=== PATIENT | male | born 1960 | race Caucasian/White ===

== ENCOUNTER 2023-08-25 09:27 | Outpatient (OUT) | payer OTHER, SELFPAY ==
--- NOTE | 2023-08-25 | XR_ITS ---
The [address] [address] Patient Name: SAMEERA MCGREGOR MRN: [id number] date: 1960 Sex: M Assigned Patient Location: [facility] Current Patient Location: [facility] Accession/Order Number: [id number] Exam Date: 08/25/2023 09:45 Report Date: 08/25/2023 11:29 At the request of: PAOLA HAHN Procedure: XR foot QUAN min 3V PROCEDURE: XR foot QUAN min 3V DATE: 08/25/2023 8:45 AM CDT COMPARISONS: None CLINICAL INDICATION: BILATERAL FOOT PAIN FINDINGS: There is no evidence of fractures or other acute osseous abnormalities. The left foot shows some mild first metatarsal phalangeal and first interphalangeal degenerative change. There is slight deformity of the proximal aspect of the fifth proximal phalanx which may represent old fracture. There is a small spur off the posterior inferior os calcis. The right foot shows moderate hallux valgus deformity. There is mild first metatarsal phalangeal degenerative change there is moderate first interphalangeal degenerative change. There appears to be hammertoe deformities second through the fifth ray. There is evidence of some midfoot degenerative changes difficult to further characterize on these images. There is tibiotalar degenerative changes also identified on radiographs of the ankle done the same day. XR/XR foot QUAN min 3V IMPRESSION: 1. No fractures or acute osseous abnormalities of either foot 2. The left foot show some scattered degenerative changes and no other significant abnormalities. 3. The right foot shows hallux valgus deformity, hammertoe deformities and scattered mild to moderate degenerative changes. Electronically authenticated by: LACHELLE FIGUEROA Date: 08/25/2023 11:29
--- NOTE | 2023-08-25 | XR_ITS ---
The [address] [address] Patient Name: SAMEERA MCGREGOR MRN: [id number] date: 1960 Sex: M Assigned Patient Location: [facility] Current Patient Location: [facility] Accession/Order Number: [id number] Exam Date: 08/25/2023 09:45 Report Date: 08/25/2023 11:34 At the request of: PAOLA HAHN Procedure: XR ankle QUAN min 3V PROCEDURE: XR ankle QUAN min 3V DATE: 08/25/2023 8:45 AM CDT COMPARISONS: None CLINICAL INDICATION: BILATERAL ANKLE PAIN FINDINGS: There is no evidence of fractures or other acute osseous abnormalities. 3 views of the left ankle show some heterotopic ossification distal to the fibula probably representing old trauma or accessory ossicles. No acute or significant left ankle osseous abnormalities are noted. Ankle mortise is intact. 3 views of the right ankle show marked tibiotalar degenerative change. It appears the talus is moderately angulated laterally consistent with chronic tibiotalar subluxation. This results in significant deformity of the right ankle all of which appears to be chronic. XR/XR ankle QUAN min 3V IMPRESSION: 1. The left ankle shows no significant abnormalities, including no acute findings. 2. The left ankle shows prominent deformity. There is chronic angulation of the talus with respect to the distal tibia resulting in widening of the ankle mortise. The articular surface of the talus is significantly subluxed laterally with this angulation. There is subsequent marked tibiotalar degenerative change. This appears to represent prominent chronic deformity. Electronically authenticated by: LACHELLE FIGUEROA Date: 08/25/2023 11:34
== END 2023-08-25 09:28 | disposition home or self-care (01) ==
LOC: RAD 09:28
PROVIDERS: Visit Provider Podiatrist Foot & Ankle Surgery
DX: M25.571 Pain in right ankle and joints of right foot (principal); M25.572 Pain in left ankle and joints of left foot; M21.6X1 Other acquired deformities of right foot; M20.11 Hallux valgus (acquired), right foot
CPT/HCPCS: 73610; 73630

== ENCOUNTER 2023-09-08 07:39 | Outpatient (OUT) | payer OTHER, SELFPAY ==
--- NOTE | 2023-09-08 08:57 | CT_ITS ---
The [address] [address] Patient Name: SAMEERA MCGREGOR MRN: [id number] date: 1960 Sex: M Assigned Patient Location: [facility] Current Patient Location: [facility] Accession/Order Number: [id number] Exam Date: 09/08/2023 09:00 Report Date: 09/08/2023 10:59 At the request of: PAOLA HAHN Procedure: CT ankle RT wo con EXAMINATION: CT ankle RT wo con HISTORY: Avascular Necrosis talus COMPARISON: No relevant comparison available. TECHNIQUE: Multi-planar CT images were created without IV contrast. Dose reduction techniques were achieved by using automated exposure control and/or adjustment of mA and/or kV according to patient size and/or use of iterative reconstruction technique. FINDINGS: BONES: No acute fracture. There is marked inversion of the foot in relation to the tibial plafond and measuring 33 degrees best seen on coronal image 217. There is lateral displacement of the talus in relation to the tibia measuring 1.9 cm. Severe degenerative changes are noted with joint space narrowing cortical thinning or proliferative osteophyte formation and extensive subchondral lytic changes . Moderate degenerative changes of the knee with joint space narrowing and marginal osteophyte formation. Contour deformity of the distal fibular diaphysis, remote healed injury. No definite focal sclerosis to suggest avascular necrosis of the talus. SOFT TISSUES: Moderate diffuse muscle atrophy. Mild subcutaneous edema. The foot EFFUSION: None visible. OTHER: Negative. CT/CT ankle RT wo con IMPRESSION: Severe degenerative changes as detailed above Electronically authenticated by: RICO LOPEZ Date: 09/08/2023 10:59
--- NOTE | 2023-09-08 09:16 | CA_ITS ---
The [facility] Test Date: 2023-09-08 Pat Name: SAMEERA MCGREGOR Department: Room: - Gender: Male Organ Pipe Voicer: Elda Patiño : 1960 Requested By: PAOLA HAHN Order Number: [id number] Reading MD: CAROL GARCIA Interpretive Statements Biphasic doppler waveforms PVR waveforms with normal upstroke, amplitude and dicrotic notch. Right: - no significant pressure gradient between cuffs - nomral TREY Left: - no significant pressure gradient between cuffs - nomral TREY Impression: - normal arterial evaluation of the lower extremities without hemodynamic impairment of the B/L lower extremities at rest (right TREY 1.12, left TREY 1.22) Electronically Signed On 09-09-2023 7:02:10 EST by CAROL GARCIA
== END 2023-09-08 07:40 | disposition home or self-care (01) ==
LOC: CARD 07:42
PROVIDERS: Visit Provider Podiatrist Foot & Ankle Surgery
DX: R09.89 Other specified symptoms and signs involving the circulatory and respiratory systems (principal); M87.9 Osteonecrosis, unspecified; M19.071 Primary osteoarthritis, right ankle and foot
CPT/HCPCS: 73700; 93923

== ENCOUNTER 2023-11-25 07:19 | Outpatient (OUT) | payer OTHER, SELFPAY ==
--- NOTE | 2023-11-25 07:31 | ECG_ITS ---
The [facility] Test Date: 2023-11-25 Pat Name: SAMEERA MCGREGOR Department: Room: - Gender: Male Chief Pilot: : 1960 Requested By: PAOLA HAHN Order Number: [id number] Reading MD: CAROL GARCIA Measurements Intervals [place] Rate: 82 P: 8 ID: [id number] QRS: 42 QRSD: 95 T: 40 QT: 360 QTc: 423 Interpretive Statements SINUS RHYTHM No previous ECG available for comparison Electronically Signed On 11-26-2023 6:53:26 EST by CAROL GARCIA
--- NOTE | 2023-11-25 08:50 | PM.PRESUREVA ---
History of Present Illness History of Present Illness Chief complaint: post traumatic osteoarthritis right ankle and foot Narrative: Patient presents for preadmission testing. The patient states he had an ankle fracture thirty-five years ago and did not seek treatment because he did not have insurance. He states he dealt with it fairly well for approximately twenty years and then recently has had increased pain and difficulty with ambulation. He states he has constant right ankle and foot pain with some numbness and tingling, he does feel that his ankle wants to give out on him but states it is better when he wears his custom brace. At the present time he is not taking any medication to help with his discomfort. The patient states he quit smoking approximately three months ago. He is a daily alcohol drinker. Review of Systems ROS Narrative REVIEW OF SYSTEMS: Negative except as stated in HPI, ten or more systems reviewed. Constitutional: No fever , chills, weakness ENT: No sore throat or epistaxis Cardiovascular: No edema, chest pain, or palpitations; Admits to dyspnea on exertion Respiratory: No shortness of breath at rest; no cough, or wheezing Gastrointestinal: No abdominal pain, constipation, diarrhea, or vomiting Genitourinary: No dysuria or hematuria Neurological: No numbness, tingling, weakness, or headache Psychiatric: No mood changes [facility] Medical History (Updated 11/25/23 @ 08:54 by Enedelia Aguilar NP) Pain in right ankle and joints of right foot ?M25.571 - Pain in right ankle and joints of right foot (ICD-10) Varus deformity, not elsewhere classified, right ankle ?M21.171 - Varus deformity, not elsewhere classified, right ankle (ICD-10) Diabetic polyneuropathy ?E11.42 - Type 2 diabetes mellitus with diabetic polyneuropathy (ICD-10) Acquired deformity of right lower leg ?M21.961 - Unspecified acquired deformity of right lower leg (ICD-10) Contracture, right ankle ?M24.571 - Contracture, right ankle (ICD-10) Acquired deformity of right foot ?M21.961 - Unspecified acquired deformity of right lower leg (ICD-10) Post-traumatic osteoarthritis, right ankle and foot ?M19.171 - Post-traumatic osteoarthritis, right ankle and foot (ICD-10) Osteonecrosis due to previous trauma ?M87.20 - Osteonecrosis due to previous trauma, unspecified bone (ICD-10) Hypertension ?I10 - Essential (primary) hypertension (ICD-10) High cholesterol ?E78.00 - Pure hypercholesterolemia, unspecified (ICD-10) Diabetes ?E11.9 - Type 2 diabetes mellitus without complications (ICD-10) Family History (Updated 11/25/23 @ 08:20 by Enedelia Aguilar NP) Other Family history of breast cancer Family history of stroke Social History (Updated 11/25/23 @ 08:15 by Enedelia Aguilar NP) Within the past year, how often did you have a drink containing alcohol: 4 or more times a week Within the past year, how many standard drinks containing alcohol did you have on a typical day: 7 to 9 Smoking status: Former smoker Non-prescribed substance use: cannabis (any form) Previous occupational history: works from home Highest level of school completed/degree received: some college, no degree Meds Home Medications and Allergies Home Medications Medication Instructions Recorded Confirmed Type alendronate 70 mg tablet 70 mg PO QWEEK 11/25/23 11/25/23 History atorvastatin 80 mg tablet 80 mg PO DAILY 11/25/23 11/25/23 History cholecalciferol (vitamin D3) 125 125 mcg PO DAILY 11/25/23 11/25/23 History mcg (5,000 unit) capsule glipizide 5 mg tablet 5 mg PO DAILY 11/25/23 11/25/23 History lactobacillus combination no.4 3 3,000 mmu cells PO DAILY 11/25/23 11/25/23 History billion cell capsule (Probiotic) lisinopril 20 mg tablet 20 mg PO DAILY 11/25/23 11/25/23 History lisinopril 20 1 tab PO DAILY 11/25/23 11/25/23 History mg-hydrochlorothiazide 25 mg tablet Allergies Allergy/AdvReac Type Severity Reaction Status Date / Time No Known Drug Allergies Allergy Verified 11/25/23 08:11 Exam Narrative Exam Narrative: Constitutional: Awake, alert, comfortable, well-appearing, nontoxic, interactive, vital signs as charted Head: Normocephalic, atraumatic Neck: Supple, normal appearance, normal range of motion, no meningeal signs, no lymphadenopathy Respiratory: No respiratory distress, breath sounds clear Cardiovascular: Regular rate and rhythm, strong and regular heart tones Musculoskeletal: Knee-high leather laced brace intact to right lower extremity Skin: No rashes or induration, no lesions, only visible skin inspected Neuro: No neurological deficits, normal sensation Psychiatric: Oriented ?3, normal affect Assessment and Plan Assessment and Plan (1) Osteonecrosis due to previous trauma: (2) Post-traumatic osteoarthritis, right ankle and foot: (3) Acquired deformity of right foot: (4) Contracture, right ankle: (5) Acquired deformity of right lower leg: (6) Diabetic polyneuropathy: (7) Varus deformity, not elsewhere classified, right ankle: (8) Pain in right ankle and joints of right foot: Plan Right foot and ankle reconstruction with fusion of ankle and subtalar joints with talectomy and 3-D printed device, bone graft, soft tissue balancing as needed scheduled with Dr. Mishra 12/06/2023.
[2023-11-25 09:22] LABS: Bilirubin Urine NEGATIVE (NEGATIVE); Blood Urine TRACE-I (NEGATIVE); Clarity Urine CLEAR (CLEAR); Color Urine YELLOW (YELLOW); Glucose Urine UA 250 mg/dL (NEGATIVE); Ketones Urine NEGATIVE (NEGATIVE); Leukocyte Esterase Urine NEGATIVE (NEGATIVE); Nitrite Urine NEGATIVE (NEGATIVE); Protein Urine 30 mg/dL (NEG/TRACE); Specific Gravity Urine 1.025 (1.005-1.025)
[2023-11-25 11:28] LABS: Anion Gap 14.7; BUN Creatinine Ratio 16.7; Calcium 9.3 mg/dL (8.5-10.1); Carbon Dioxide 27.8 mmol/L (21.0-32.0); Chloride 93 mmol/L (98-107); Estimated GFR (African America >60 (>=60); Estimated GFR (Non-African Ame >60 (>=60); Glucose 222 mg/dL (74-106); Potassium 4.5 mmol/L (3.5-5.1); Sodium 131 mmol/L (136-145)
== END 2023-11-25 07:20 | disposition home or self-care (01) ==
LOC: PST 07:20
PROVIDERS: Visit Provider Podiatrist Foot & Ankle Surgery
DX: Z01.810 Encounter for preprocedural cardiovascular examination (principal); Z01.818 Encounter for other preprocedural examination; Z01.812 Encounter for preprocedural laboratory examination; M19.171 Post-traumatic osteoarthritis, right ankle and foot; M21.171 Varus deformity, not elsewhere classified, right ankle
CPT/HCPCS: 80048; 81003; 83036; 87081; 93005; G0463

== ENCOUNTER 2023-12-06 16:37 | Inpatient (IN) | payer OTHER, SELFPAY ==
[2023-11-25 08:37] VITALS: BP 157/82; PULSE 87; RESP 20; TEMP 36.2; O2SAT 95; BMI 39.6
[2023-12-06] VITALS (11 sets, daily range): BP systolic 108–163; BP diastolic 65–86; PULSE 81–94; RESP 13–20; TEMP 36.3–37.3; O2SAT 90–94; BMI 40.7; BMI 43.7
--- NOTE | 2023-12-06 | FL_ITS ---
[address] [address] Patient Name: SAMEERA MCGREGOR MRN: [id number] date: 1960 Sex: M Assigned Patient Location: [facility] Current Patient Location: MS Accession/Order Number: [id number] Exam Date: 12/06/2023 11:00 Report Date: 12/08/2023 08:24 At the request of: PAOLA HAHN Procedure: FL fluoroscopy <1hr NON-READ EXAM: FL fluoroscopy <1hr NON-READ HISTORY: TECHNIQUE: FINDINGS: Please see Operative Report. Electronically authenticated by: RADIOLOGIST NO Date: 12/08/2023 08:24
[2023-12-06 07:07] LABS: Basophils Absolute Auto 0.1 10^3/uL (0.0-0.1); Basophils Percent Auto 1.7 % (0.2-2.0); Eosinophils Absolute Auto 0.4 10^3/uL (0.0-0.7); Eosinophils Percent Auto 5.2 % (0.9-7.0); Hematocrit 40.6 % (42.0-54.0); Hemoglobin 14.5 g/dL (14.0-18.0); Immature Granulocytes Abs Auto 0.13 10^3/uL (0.00-0.03); Immature Granulocytes Pct Auto 1.7 % (0.0-0.5); Lymphocytes Absolute Auto 1.3 10^3/uL (1.2-3.8); Lymphocytes Percent Auto 16.7 % (20.5-60.0); Mean Corpuscular HGB Conc 35.7 g/dL (29.9-35.2); Mean Corpuscular Hemoglobin 33.1 pg (25.9-34.0); Mean Corpuscular Volume 92.7 fL (80.0-94.0); Mean Platelet Volume 9.2 fL (9.5-13.5); Monocytes Percent Auto 12.7 % (1.7-12.0); Neutrophils Absolute Auto 4.8 10^3/uL (1.4-6.5); Platelet Count 296 10^3/uL (150-450); Red Blood Count 4.38 10^6/uL (4.70-6.10); Red Cell Distribution Width 11.9 % (11.0-15.0); White Blood Count 7.7 10^3/uL (4.0-11.0)
[2023-12-06 07:29] LABS: Glucometer 204 mg/dL (74-106)
[2023-12-06] MEDS: ACETAMINOPHEN 500 MG TABLET 1000 MG PO (07:49)
[2023-12-06] MEDS: LACTATED RINGER'S SOLUTION 1,000 ML 50 ML IV ×2 (07:49→11:44)
[2023-12-06] MEDS: CELECOXIB 200 MG CAPSULE PO (07:49)
[2023-12-06] MEDS: PREGABALIN 75 MG CAPSULE PO ×2 (07:49→21:36)
--- NOTE | 2023-12-06 09:11 | PC.NURSE ---
Patient was consented for a nerve block. See time-out documentation. Patient was positioned in a supine fashion with O2 and monitors in place. Patient was medicated by Dr. Mosquera with Versed. Bedside ultrasound was used for both areas of block (femoral and popliteal). Patient was positioned on to side when popliteal block was done. Patient tolerated both well. Voiced no questions or concerns. Patient remains on monitors and O2 until he is taken to OR. at bedside at this time.
[2023-12-06] MEDS: CEFAZOLIN SODIUM 3,000 MG in 0.9 % SODIUM CHLORIDE 100 ML 200 MG IV (09:45)
--- NOTE | 2023-12-06 11:00 | PM.ORONB ---
Brief Operative Note Date of procedure: 12/06/23 Pre-op diagnosis: right ankle/foot arthritis with varus deformity, AVN of talus, FF valgus Post-op diagnosis: other (right ankle/foot arthritis with varus deformity, avascular necrosis of talus, forefoot valgus, contracture of posterior tibial tendon, equinus, plantar fascial contracture, type 2 diabetes with peripheral neuropathy and nicotine dependence in remission) Procedure: PROCEDURES PERFORMED: right ankle and subtalar joint fusion, talectomy, posterior tibial tendon lengthening, Achilles lengthening, plantar fasciectomy, harvest of tibial bone graft, application short leg splint and intraoperative fluoroscopy examination INDICATIONS FOR PROCEDURE: patient is a 63-year-old male with type 2 diabetes and peripheral neuropathy. He has a smoking history of forty pack years however according the patient he is quit smoking since 08/29/23 without the help of nicotine replacement or medication. Right sided TREY was 1.12 while TBI was 1.20. patient was referred to me from his local communications tech for severe cavovarus deformity with ankle and hindfoot arthritis. He had attempted multiple custom rigid bracing modalities with only marginal relief. Patient related that his foot began becoming more deformed and has been increasing in deformity for the last five years. He is interested in surgical reconstruction and I reviewed the potential risks and benefits. CT scan was highly concerning for avascular necrosis of the talus. Clinically and plain radiographs revealed severe varus deformity of the tibiotalar joint with end-stage arthrosis. In addition his subtalar joint was also arthritic. I educated the patient and his specifically regarding the complexity of the patient's right ankle and foot issue but also that he is at increased risk given his diabetes with neuropathy and extensive smoking history. All questions were answered to the patient's satisfaction INTRAOPERATIVE FINDINGS: severe contractures of the Achilles and posterior tibial tendon were noted and upon release partial reduction of the patient's deformity was obtained on the table. When excising his fibula was notably partially fused to the tibia at the level of the syndesmosis. Full-thickness cartilage loss of the entire talus and seventy-five percent of the distal tibia. There was significant surrounding synovitis of the ankle and subtalar joint with the subtalar joint having nearly half of the joint surface having lost all cartilage. The talus was extremely unstable and was able to be excised in total without the need for talar osteotomy. even the nonarticular portions of the talus had full-thickness cartilage loss. This bone was clearly compromised being a pale yellow color. Bone quality of all other bones however was within normal limits given patient's age and gender. Forefoot valgus is noted preoperatively however reduced significantly once soft tissue releases and hindfoot and ankle fusion were performed PROCEDURES IN DETAIL: Patient was identified in pre op and consent was reviewed. Correct side and site were identified and marked. Regional anesthesia performed by the anesthesia team. Pre-op antibiotics were started. Patient was brought to OR suite and place on table in a supine position. General anesthesia was administered. Tourniquet applied. Operative extremity was prepped and draped in usual sterile fashion. Formal time-out was performed and the foot/ankle were exsanguinated and tourniquet inflated. Utilizing a stab incision over the mid substance of the Achilles tendon, a scalpel was used to fully release the Achilles tendon. Significant increase in ankle joint dorsiflexion was noted on the table. then a 3 cm longitudinal incision was placed posterior to the medial malleolus and comminution sharp and blunt dissection gained access to the posterior tibial tendon. The surgical tendon sheath was reflected and the posterior tibial tendon was isolated then cut trannsversely allowing partial correction of the patient's varus deformity. Next a 3 cm longitudinal incision was placed at the glabrous skin junction on the medial heel and comminution sharp and blunt dissection gained access to the medial band of the plantar fascia. Once the fascia was isolated with hemostats a 1 cm portion of the medial band of plantar fascia was excised sharply releasing the contracture of the plantar fascia. The surgical sites were irrigated copiously. Lateral extensile incision was placed over the distal fibula and extended over the sinus tarsi. Comminution sharp and blunt dissection gained access to the fibular malleolus. An osteotomy of the fibula was performed and the distal fibula was excised and passed the back table. Access was gained to the ankle and subtalar joints and exposure of the entire talus was performed. the talus was extremely unstable and a combination of sharp and blunt dissection I was able to release all soft tissue attachments to the talus which was then removed in total without the need for osteotomy. The talus was passed the back table to be sent as specimen. The distal tibia and calcaneal facets were prepared for fusion with the use of acetabular reamers. Estimated reamers were used under fluoroscopy ensuring that the joint spaces were prepared to accommodate the three printed talar cage. All cartilage and subchondral bone was removed with acetabular reamer. The distal tibia and calcaneal facets were then drilled with a 2.0 mm drill bit in the surgical site was irrigated copiously. trials were used to determine the ideal fit as well as ability to reduce all deformity. He was determined that the small sized three printed talar cage would provide ideal reduction and bone to implant contact. The trial was left in place during the reaming process. Utilizing C-arm a proper starting point on the plantar surface of the calcaneus was marked. A longitudinal incision over the plantar heel was created blunt dissection down to the plantar calcaneus was performed. Then utilizing a A large guidepin was placed in the calcaneus through a stab incision on the posterior lateral aspect. This wire was placed under fluoroscopic guidance and was then used as a joystick to hold the hindfoot in a neutral position. then the guidepin was placed from the plantar calcaneus through the trial and into the distal tibia under fluoroscopic guidance. Starting with the 7 mm reamer, reaming was performed of the calcaneus and into the tibial plafond. Next a 9 mm reamer was used in the same fashion. The reamer and guide pin was removed. A ball-tipped wire was then placed into the hole in the calcaneus and tibia then a mallet was used to advance the ball-tip guidewire into the proximal tibia. Fluoroscopy confirmed the ball-tip wires placement. Then a 9.5 mm reamer was used over the ball-tipped wire into the level of the proximal tibia. 0.5 mm larger reamer in succession until chatter was obtained in the tibial isthmus. Largest reaming with an 13 mm reamer followed by a 13.5 mm reamer to accommodate the distal aspect of the nail was performed for a [id number] mm nail. All reamings collected as tibial autograft with use of the Fanv[employer]eler Bone Press and corresponding suction device. 10 mL of solid bone graft was from bone marrow aspirate (15 mL) utilizing the bone press. The ball tipped wire was then removed. The solid graft was mixed with 5 cc of Sparc, Proteios & ConCelltrate allografts and was packed into the titanium 3D printed talar cage. Once packed with graft the cage was place between the tibia and calcaneus. On the back table, the appropriate sized nail was attached to the jig and the nitinol element was stretched to 6 mm. X-ray was evaluated for proper positioning of the nail. Stab incisions over the posterior and lateral aspect of the calcaneus were placed followed by blunt dissection down to bone was performed. The lateral to medial calcaneus hole was drilled with the corresponding cannula and a 5.0 mm screws was placed. Next, the distal most screw was drilled from posterior to anterior under fluoroscopy guidance. A 5.0 mm screw was then placed from a posterior anterior direction through the nail holes distally. at this point in time the tourniquet had reached a hundred twenty minutes so the lateral incision was temporarily closed with carlo for hemostasis preventing any bone graft loss. A stab incision was placed over the mid shaft of the tibia followed by blunt dissection down to bone. Then the tibia drilled transversely with a compression justo accordingly with the appropriate drill sleeves across the dynamic proximal slot an additional stab incision was placed to allow passage of the compression justo. Then utilizing the jig the ankle and subtalar joints were compressed until there was a slight bend in the compression rods. 4 mm of manual compression was obtained which was visualized under fluoroscopy. Next the medial stab incision was extended proximally and distally followed by blunt dissection down to bone. A static crosslock screw was placed accordingly across the midshaft with the aide of the jig under fluoroscopic guidance. The manual compression was removed followed by the compression justo. An additional 5.0 mm screw was placed tranversly across the dynamic slot in the tibia. The jig was then removed after confirming proper hardware placement. An end cap on the distal aspect of the nail was then placed and confirmed under fluoroscopy. excluding the lateral extensile incision all other incisions were irrigated and closed in layers. Over twenty minutes of reperfusion time had been obtained and the foot and ankle were then exsanguinated and the tourniquet was reinflated. The carlo for temporary closure of the lateral incision were then removed and the surgical site was lightly irrigated then any remaining graft was packed into the fusion site. This incision was then closed in layers and the tourniquet was dropped with a prompt hyperemic response being noted. A dry sterile dressing consisting of Xeroform on the incisions followed by 4 x 4 gauze, ABDs, and Kerlix were applied. Multiple layers of cast padding were then applied to ensure all bony prominences were well-padded. A plaster posterior splint was then applied which was held in place by Antoine wraps. Capillary refill time to all digits was evaluated and had appropriate response. POSTOPERATIVE PLAN: Transfer to med/surg under hospitalist's care NWB operative foot/ankle Ice and elevation Birdie-op antibiotics, multimodal pain medication and DVT prophylaxis ordered Consults: physical therapy & social media job titles Estimated LOS 2-3 nights Will follow *NWB x8-12 weeks Implants: [employer] DynaNail [id number] 3D printed, patient specific talar cage Bone allograft: Sparc, Proteios & ConCelltrate Anesthesia: regional and General-LMA Surgeon: Omar Mishra Lawn Service Worker: Jhony Wilks Estimated blood loss (mL): 100 Pathology: other (talus and lateral malleolus) Condition: stable Disposition: floor
--- NOTE | 2023-12-06 13:47 | XR_ITS ---
The [address] [address] Patient Name: SAMEERA MCGREGOR MRN: [id number] date: 1960 Sex: M Assigned Patient Location: MS Current Patient Location: MS Accession/Order Number: [id number] Exam Date: 12/06/2023 15:00 Report Date: 12/06/2023 15:31 At the request of: EMMA BYERS Procedure: XR foot RT min 3V PROCEDURE: XR ankle RT min 3V, XR foot RT min 3V COMPARISON: 09/08/2023 HISTORY: Postop x-ray FINDINGS: BONES:Interval talus resection with placement of a talar cage. Ankle fusion with reduction and hindfoot varus utilizing a retrograde intramedullary justo and proximally and distally. Resection of the distal fibula. SOFT TISSUES:Postprocedural soft tissue swelling and subcutaneous emphysema EFFUSION:None visible. OTHER: Posterior splint obscures bone detail XR/XR foot RT min 3V IMPRESSION: Interval talus resection and ankle fusion Electronically authenticated by: RICO LOPEZ Date: 12/06/2023 15:31
--- NOTE | 2023-12-06 13:47 | XR_ITS ---
The [address] [address] Patient Name: SAMEERA MCGREGOR MRN: [id number] date: 1960 Sex: M Assigned Patient Location: MS Current Patient Location: MS Accession/Order Number: [id number] Exam Date: 12/06/2023 15:00 Report Date: 12/06/2023 15:31 At the request of: EMMA BYERS Procedure: XR ankle RT min 3V PROCEDURE: XR ankle RT min 3V, XR foot RT min 3V COMPARISON: 09/08/2023 HISTORY: Postop x-ray FINDINGS: BONES:Interval talus resection with placement of a talar cage. Ankle fusion with reduction and hindfoot varus utilizing a retrograde intramedullary justo and proximally and distally. Resection of the distal fibula. SOFT TISSUES:Postprocedural soft tissue swelling and subcutaneous emphysema EFFUSION:None visible. OTHER: Posterior splint obscures bone detail XR/XR ankle RT min 3V IMPRESSION: Interval talus resection and ankle fusion Electronically authenticated by: RICO LOPEZ Date: 12/06/2023 15:31
--- NOTE | 2023-12-06 13:47 | CT_ITS ---
The [address] [address] Patient Name: SAMEERA MCGREGOR MRN: [id number] date: 1960 Sex: M Assigned Patient Location: MS Current Patient Location: MS Accession/Order Number: [id number] Exam Date: 12/06/2023 15:00 Report Date: 12/06/2023 15:29 At the request of: EMMA BYERS Procedure: CT ankle RT wo con EXAMINATION: CT ankle RT wo con HISTORY: Post op CT R ankle, COMPARISON: 09/08/2023 TECHNIQUE: Multi-planar CT images were created without IV contrast. Dose reduction techniques were achieved by using automated exposure control and/or adjustment of mA and/or kV according to patient size and/or use of iterative reconstruction technique. FINDINGS: BONES: Interval talus resection with KK age and ankle fusion utilizing a retrograde intramedullary justo extending through the calcaneus into the tibia and proximally and distally. Anatomic alignment is noted with reduction in the previously noted varus deformity of the foot in relation to the tibia. No acute fracture, dislocation or mechanical failure. SOFT TISSUES: Postsurgical subcutaneous edema and air. EFFUSION: None visible. OTHER: Negative. CT/CT ankle RT wo con IMPRESSION: Interval talus resection and ankle fusion detailed above Electronically authenticated by: RICO LOPEZ Date: 12/06/2023 15:29
[2023-12-06 14:38] LABS: Glucometer 209 mg/dL (74-106)
--- NOTE | 2023-12-06 16:34 | P.HP_ITS ---
<Statement entered by Shaikh Maikel MD - 12/06/23 18:44> This documentation has been reviewed and approved.Case d/w Zakia. 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 Please see the podiatry service's clinic H&P for the clinical course leading to this operative repair. He is being admitted to the hospitalist service in observation overnight for close monitoring of his postoperative status and pain control. At the time of my exam the patient is resting comfortably in bed chatting with his at the bedside. He is alert and oriented x 3. He had an intraoperative nerve block performed during surgery and he has no sensation of the right lower extremity at this time. He denies any chest pain, shortness of breath, N/V, or any other acute complaint. His operative foot is warm and pink with palpable pulses. Review of Systems ROS Status of ROS 10 or more systems reviewed and unremark able except as noted in history and below [facility] Medical History (Updated 11/25/23 @ 08:54 by Enedelia Aguilar NP) Pain in right ankle and joints of right foot ?M25.571 - Pain in right ankle and joints of right foot (ICD-10) Varus deformity, not elsewhere classified, right ankle ?M21.171 - Varus deformity, not elsewhere classified, right ankle (ICD-10) Diabetic polyneuropathy ?E11.42 - Type 2 diabetes mellitus with diabetic polyneuropathy (ICD-10) Acquired deformity of right lower leg ?M21.961 - Unspecified acquired deformity of right lower leg (ICD-10) Contracture, right ankle ?M24.571 - Contracture, right ankle (ICD-10) Acquired deformity of right foot ?M21.961 - Unspecified acquired deformity of right lower leg (ICD-10) Post-traumatic osteoarthritis, right ankle and foot ?M19.171 - Post-traumatic osteoarthritis, right ankle and foot (ICD-10) Osteonecrosis due to previous trauma ?M87.20 - Osteonecrosis due to previous trauma, unspecified bone (ICD-10) Hypertension ?I10 - Essential (primary) hypertension (ICD-10) High cholesterol ?E78.00 - Pure hypercholesterolemia, unspecified (ICD-10) Diabetes ?E11.9 - Type 2 diabetes mellitus without complications (ICD-10) Family History (Updated 12/06/23 @ 16:28 by Kaia Rod) Other Family history of breast cancer Family history of hypertension Family history of stroke Social History (Updated 12/06/23 @ 16:29 by Kaia Rod) Within the past year, how often did you have a drink containing alcohol: 4 or more times a week Within the past year, how many standard drinks containing alcohol did you have on a typical day: 7 to 9 Smoking status: Former smoker Non-prescribed substance use: cannabis (any form) Previous occupational history: works from home Highest level of school completed/degree received: some college, no degree Are you now , , , , never or living with a partner: Little interest or pleasure in doing things: not at all Feeling down, depressed, or hopeless: not at all Feel stressed/tense/nervous/anxious/difficulty sleeping: not at all Meds Home Medications and Allergies Home Medications Medication Instructions Recorded Confirmed Type alendronate 70 mg tablet 70 mg PO QWEEK 11/25/23 12/06/23 History atorvastatin 80 mg tablet 80 mg PO DAILY 11/25/23 12/06/23 History cholecalciferol (vitamin D3) 125 125 mcg PO DAILY 11/25/23 12/06/23 History mcg (5,000 unit) capsule glipizide 5 mg tablet 5 mg PO DAILY 11/25/23 12/06/23 History lactobacillus combination no.4 3 3,000 mmu cells PO DAILY 11/25/23 12/06/23 History billion cell capsule (Probiotic) lisinopril 20 mg tablet 20 mg PO DAILY 11/25/23 12/06/23 History lisinopril 20 1 tab PO DAILY 11/25/23 12/06/23 History mg-hydrochlorothiazide 25 mg tablet alendronate 70 mg tablet (Fosamax) 70 mg PO QWEEK 12 weeks #12 tabs 12/06/23 Rx aspirin 81 mg tablet,delayed 81 mg PO BID 30 days #60 tabs 12/06/23 Rx release (Adult Low Dose Aspirin) cefadroxil 500 mg capsule 500 mg PO BID 7 days #14 caps 12/06/23 Rx cholecalciferol (vitamin D3) 125 125 mcg PO DAILY 90 days #90 caps 12/06/23 Rx mcg (5,000 unit) capsule ondansetron 4 mg disintegrating 4 mg PO Q8H PRN nausea and 12/06/23 Rx tablet vomiting 5 days #15 tabs oxycodone-acetaminophen 5 mg-325 1 tab PO Q6H PRN pain 7 days #28 12/06/23 Rx mg tablet (Percocet) tabs sennosides 8.6 mg tablet (Senna 8.6 mg PO DAILY PRN constipation 7 12/06/23 Rx Laxative) days #7 tabs tizanidine 2 mg tablet 2 mg PO TID PRN muscle spasticity 12/06/23 Rx 7 days #21 tabs Allergies Allergy/AdvReac Type Severity Reaction Status Date / Time No Known Drug Allergies Allergy Verified 12/06/23 07:21 Exam Constitutional Vital Signs, click to edit/add: Last Vital Signs Temp 98.8 F 12/06/23 15:21 Pulse 87 12/06/23 15:21 Resp 20 12/06/23 15:21 BP 135/80 12/06/23 15:21 Pulse Ox 94 L 12/06/23 15:21 O2 Del Method Room Air 12/06/23 15:21 Common normals: no apparent distress, oriented x3, alert and well nourished General appearance: cooperative Orientation/consciousness: Yes awake [facility] Common normals: normocephalic, head/scalp atraumatic, hearing grossly normal bilaterally, external nose normal and moist oral mucous membranes Head and scalp: normocephalic and atraumatic Face and sinus: normal facial exam Nose: external nose normal Eye Common normals: PERRL, EOMs intact bilaterally, conjunctivae normal and no scleral icterus Alignment: alignment normal Eyelid: eyelids normal Conjunctiva: conjunctiva(e) normal Pupil: PERRL Chest Common normals: inspection of chest normal Chest: symmetrical chest wall rise Respiratory Common normals: normal respiratory effort, no retractions, no use of accessory muscles and clear to auscultation bilaterally Effort & inspection: able to speak in complete sentences Auscultation: clear to auscultation bilaterally Cardio Common normals: no JVD, regular rate, regular rhythm, S1 normal heart sound, S2 normal heart sound, no gallops, no clicks, no murmurs, no rub and peripheral pulses 2+ throughout Rate: regular rate Rhythm: regular rhythm Heart sounds: S1 normal, S2 normal and murmur (HSM 2/6) Peripheral pulses: pulses 2+ throughout GI Common normals: Normal to inspection, nondistended, normoactive bowel sounds present, soft to palpation, non-tender, no hepatosplenomegaly, no masses and no bruits Palpation: soft and no hepatosplenomegaly Bladder/kidney exam: bladder normal to palpation Back & Pelvis Common normals: thoracic and lumbar spine normal to inspection Extremity Common normals: normal capillary refill and no pedal edema General: normal exam except as noted; no clubbing and no cyanosis Right lower extremity: lower leg (No sensation or movement s/p nerve block) Neuro Cheri Coma Scale: GCS not evaluated Common normals: oriented x3, CN's II-XII intact bilaterally, moves all extremities, no focal motor deficits and no sensory deficits noted Sensorium/orientation: awake and alert Speech: speech normal Motor exam: strength 5/5 throughout Psych Common normals: mental status grossly normal, thought process normal, affect normal and activity/motor behavior normal Thought process: normal thought process Results Labs Labs: Short CBC 12/06/23 Range/Units 07:03 WBC 7.7 (4.0-11.0) 10^3/uL Hgb 14.5 (14.0-18.0) g/dL Hct 40.6 L (42.0-54.0) % Plt Count 296 (150-450) 10^3/uL Pulse Oximetry Attestation: I have reviewed the pertinent pulse oximetry results. Assessment and Plan Assessment and Plan (1) S/P ankle fusion: Assessment and Plan: ACUTE * Adm observation * POD#0 - Pt denies acute complaints. RLE paresthesia s/p nerve block * Defer post op IVFs, pain management, WB instructions, PT/OT orders, post op DVT prophylaxis, to the surgical service * CBC, BMP in AM (2) Diabetes: Assessment and Plan: CHRONIC * Continue home glipizide * ACHS glucometer checks * Med dose SSI for glucose correction (3) High cholesterol: Assessment and Plan: CHRONIC * Continue home statin (4) Hypertension: Assessment and Plan: CHRONIC * Continue home ACEi/HCTZ
[2023-12-06] MEDS: CEFAZOLIN SODIUM/DEXTROSE,ISO 2 GM/50 ML PIGGYBACK IV (17:41)
--- NOTE | 2023-12-06 20:04 | PC.NURSE ---
Patient unable to wiggle toes on right foot. No sensation. Toes are warm to the touch
[2023-12-06 21:35] LABS: Glucometer 183 mg/dL (74-106)
[2023-12-06] MEDS: ATORVASTATIN CALCIUM 40 MG TABLET 80 MG PO (21:36)
[2023-12-06] MEDS: ENOXAPARIN SODIUM 40 MG/0.4 ML SYRINGE SUBQ (21:37)
[2023-12-06] MEDS: INSULIN ASPART 300 UNIT/3 ML PEN SUBQ (21:43)
[2023-12-07] MEDS: OXYCODONE HCL 5 MG TABLET 10 MG PO ×2 (02:01→15:28)
[2023-12-07] MEDS: CEFAZOLIN SODIUM/DEXTROSE,ISO 2 GM/50 ML PIGGYBACK IV ×2 (02:02→09:17)
[2023-12-07 04:13] VITALS: BP 143/74; RESP 18; TEMP 36.7; O2SAT 91
[2023-12-07 05:33] LABS: Basophils Absolute Auto 0.1 10^3/uL (0.0-0.1); Basophils Percent Auto 0.9 % (0.2-2.0); Eosinophils Absolute Auto 0.1 10^3/uL (0.0-0.7); Eosinophils Percent Auto 1.1 % (0.9-7.0); Hematocrit 33.9 % (42.0-54.0); Hemoglobin 11.8 g/dL (14.0-18.0); Immature Granulocytes Abs Auto 0.08 10^3/uL (0.00-0.03); Immature Granulocytes Pct Auto 0.8 % (0.0-0.5); Lymphocytes Absolute Auto 1.2 10^3/uL (1.2-3.8); Lymphocytes Percent Auto 11.7 % (20.5-60.0); Mean Corpuscular HGB Conc 34.8 g/dL (29.9-35.2); Mean Corpuscular Hemoglobin 33.1 pg (25.9-34.0); Mean Corpuscular Volume 95.2 fL (80.0-94.0); Mean Platelet Volume 9.4 fL (9.5-13.5); Monocytes Absolute Auto 1.3 10^3/uL (0.3-0.8); Monocytes Percent Auto 13.2 % (1.7-12.0); Neutrophils Absolute Auto 7.3 10^3/uL (1.4-6.5); Neutrophils Percent Auto 72.3 % (43.0-75.0); Platelet Count 252 10^3/uL (150-450); Red Blood Count 3.56 10^6/uL (4.70-6.10); Red Cell Distribution Width 12.3 % (11.0-15.0); White Blood Count 10.1 10^3/uL (4.0-11.0)
[2023-12-07 05:45] LABS: Estimated Average Glucose 146 mg/dL; Glycohemoglobin A1C 6.7 % (4.5-6.2)
[2023-12-07 05:48] LABS: Anion Gap 12.6; BUN Creatinine Ratio 21.9; Calcium 8.6 mg/dL (8.5-10.1); Carbon Dioxide 26.3 mmol/L (21.0-32.0); Chloride 94 mmol/L (98-107); Estimated GFR (African America >60 (>=60); Estimated GFR (Non-African Ame >60 (>=60); Glucose 190 mg/dL (74-106); Potassium 3.9 mmol/L (3.5-5.1); Sodium 129 mmol/L (136-145)
[2023-12-07 07:53] LABS: Glucometer 221 mg/dL (74-106)
[2023-12-07] MEDS: 0.9 % SODIUM CHLORIDE 1,000 ML 100 ML IV (08:21)
--- NOTE | 2023-12-07 08:38 | CM.NOTE ---
Rounds made with Dr. Pop, possible discharge this afternoon. Dr. Pop will discuss discharge with Dr. Mishra.
[2023-12-07 09:16] VITALS: BP 154/75
[2023-12-07] MEDS: CHOLECALCIFEROL (VITAMIN D3) 125 MCG/5000 UNIT TABLET PO (09:16)
[2023-12-07] MEDS: PREGABALIN 75 MG CAPSULE PO (09:16)
[2023-12-07] MEDS: OXYCODONE HCL 5 MG TABLET PO (09:16)
[2023-12-07] MEDS: HYDROCHLOROTHIAZIDE 25 MG TABLET PO (09:16)
[2023-12-07 09:17] VITALS: BP 154/7
[2023-12-07] MEDS: INSULIN ASPART 300 UNIT/3 ML PEN SUBQ (09:17)
[2023-12-07] MEDS: GLIPIZIDE 5 MG TABLET PO (09:17)
[2023-12-07] MEDS: LISINOPRIL 20 MG TABLET 40 MG PO (09:17)
--- NOTE | 2023-12-07 09:29 | SWNOTE1 ---
SW spoke to case management and pt voices he has everything he needs at home in regards to DME. He has no needs at discharge.
[2023-12-07 11:29] LABS: Glucometer 203 mg/dL (74-106)
[2023-12-07] MEDS: ACETAMINOPHEN 500 MG TABLET 1000 MG PO (11:39)
--- NOTE | 2023-12-07 12:08 | PM.PN ---
Progress Note: Subjective Subjective Interval history: Patient seen resting comfortably at bedside this a.m. POD #1 s/p right ankle subtalar joint fusion with talectomy and custom talar cage, tendo Achilles lengthening, posterior tibial tenotomy, plantar fasciectomy DOS 12/06/2023. He admits to mild pain along the medial aspect of the right ankle controlled with p.o. meds, states the lateral aspect of the right leg still feels numb however he states it feels it is wearing off and does have sensation in active range of motion of his digits.He denies any acute events overnight. Denies any other acute lower extremity complaints and denied any constitutional symptoms at time of visit. Exam Narrative Exam Narrative: RLE splint left CDI. CFT intact to digits. Skin temperature warm and symmetric With no erythema or ecchymosis proximal and distal to dressing. Light touch sensation and active range of motion to digits present. Compartments soft compressible, no pain with calf or thigh compression. Constitutional Vital Signs, click to edit/add: Last Vital Signs Temp 98.1 F 12/07/23 04:13 Pulse 90 12/06/23 22:00 Resp 18 12/07/23 04:13 BP 154/7 H 12/07/23 09:17 Pulse Ox 91 L 12/07/23 04:13 O2 Del Method Room Air 12/07/23 11:52 Progress Note: Objective Labs Labs: Short CBC 12/07/23 Range/Units 05:06 WBC 10.1 (4.0-11.0) 10^3/uL Hgb 11.8 L (14.0-18.0) g/dL Hct 33.9 L (42.0-54.0) % Plt Count 252 (150-450) 10^3/uL BMP 12/07/23 05:06 Sodium 129 L Potassium 3.9 Chloride 94 L Carbon Dioxide 26.3 BUN 16.0 Creatinine 0.73 Glucose 190 H Calcium 8.6 Progress Note: A&P Assessment and Plan (1) S/P ankle fusion: (2) Diabetes: (3) High cholesterol: (4) Hypertension: Plan Patient examined evaluated. All findings discussed with patient all questions answered to patient's satisfaction. Pertinent labs and imaging reviewed. Postop CT obtained for benchmark. RLE dressing to remain CDI until follow-up. Maintain strict nonweightbearing to right lower extremity with crutches walker or knee scooter for assistance. PT consult pending. Aim for pain control with p.o. meds, currently controlled. Anticipate DC home today versus tomorrow pending PT eval and p.o. pain medications. Will follow-up in [address] Mishra's office. Rest per primary, please call questions or concerns.
[2023-12-07 13:20] LABS: Anion Gap 12.7; BUN Creatinine Ratio 17.2; Calcium 8.3 mg/dL (8.5-10.1); Carbon Dioxide 26.3 mmol/L (21.0-32.0); Chloride 96 mmol/L (98-107); Estimated GFR (African America >60 (>=60); Estimated GFR (Non-African Ame >60 (>=60); Glucose 190 mg/dL (74-106); Sodium 131 mmol/L (136-145)
--- NOTE | 2023-12-07 13:48 | SWNOTE1 ---
SW stopped in to see pt as home health was recommended. Pt and in room. SW offered home health for pt at home for some therapy. At this time pt and decline and do not want home health. SW let them know if they did change minds his PCP will be able to set up. They voiced understanding.
--- NOTE | 2023-12-07 13:52 | P.DS_ITS ---
<Statement entered by Shaun Pop MD - 12/08/23 05:34> This documentation has been reviewed and approved. Pt seen in room early am on day of dicharge pt with no concerns agree with inpout as provided by nurspactioner DS: Providers Provider Date of admission: 12/06/23 16:37 Primary care physician: Non-Staff PhysicianMD Consults: 12/06/23 13:47 Consult to Can Sorter Routine Reason for consult:: Fdc Other reason:: Possible SNF, anticipate DC home Physical Therapy Eval and Treat Routine Reason for consultation: postop gait eval/fall risk, nwb rle Has provider been notified: No Discharging clinician: Zakia Leonardo DS: Diagnosis Discharge Diagnosis (1) S/P ankle fusion: (2) Diabetes: (3) High cholesterol: (4) Hypertension: DS: Summary Hospital Course Hospital Course: The patient was admitted to the hospitalist service after undergoing a right ankle subtalar joint fusion with colectomy and custom talar cage, tendo Achilles lengthening, posterior tibial tenotomy, and plantar fasciotomy per Dr Mishra on 12/06/2023. His postoperative course was unremarkable and his pain is well- controlled. He continues to have some paresthesias of the right lower extremity after a nerve block, but he is able to manipulate his toes on command. His right foot is pink and warm with a surgical dressing still intact. He was evaluated by physical therapy today and the patient ambulated well using a walker. Home health physical therapy was recommended by PT, but the patient has refused. He states that his is taken 2 weeks off of work to assist him with mobility around the house and he feels comfortable using a walker or crutches. He was noted to be mildly hyponatremic after surgery. He was treated with normal saline IV fluids and his sodium although still slightly low is i mproved. He is being discharged home in stable condition. We defer to the podiatry service all postoperative pain management, wound care, and weightbearing orders. He should follow up with Dr Mishra next week. Time Spent with Patient Time attestation: Total time spent providing and/or coordinating discharge services: Time spent: greater than 30 minutes Specific discharge activities: Physical exam, discussion of discharge plan, questions answered. Exam Constitutional Vital Signs, click to edit/add: Last Vital Signs Temp 98.1 F 12/07/23 04:13 Pulse 90 12/06/23 22:00 Resp 18 12/07/23 04:13 BP 154/7 H 12/07/23 09:17 Pulse Ox 91 L 12/07/23 04:13 O2 Del Method Room Air 12/07/23 11:52 Common normals: no apparent distress, oriented x3 and alert General appearance: cooperative Orientation/consciousness: Yes awake [facility] Common normals: normocephalic and head/scalp atraumatic Eye Common normals: PERRL, EOMs intact bilaterally, conjunctivae normal and no scleral icterus Neck & C-Spine Common normals: no JVD Respiratory Common normals: normal respiratory effort, no use of accessory muscles and clear to auscultation bilaterally Effort & inspection: able to speak in complete sentences and symmetric chest movement Cardio Common normals: no JVD, regular rate, regular rhythm, S1 normal heart sound, S2 normal heart sound and peripheral pulses 2+ throughout Heart sounds: murmur (HSM 2/6) GI Common normals: Normal to inspection, nondistended, normoactive bowel sounds present, soft to palpation and non-tender Bladder/kidney exam: bladder normal to palpation Extremity Common normals: normal to inspection, full ROM, normal capillary refill and no pedal edema General: no clubbing and no cyanosis Right lower extremity: foot and digits (Post op swelling, paresthesias. Warm, pink) Neuro Common normals: moves all extremities and no focal motor deficits Speech: speech normal Other: RLE s/p intraop nerve block. Movement of toes noted, paresthesias persist. Psych Common normals: mental status grossly normal and activity/motor behavior normal DS: Data Data Completed and Pending Labs on day of discharge: Labs from last 24 hours 12/07/23 12/07/23 12/07/23 13:06 11:28 07:52 WBC RBC Hgb Hct MCV MCH MCHC RDW Plt Count MPV Neut % (Auto) Lymph % (Auto) Hamilton % (Auto) Eos % (Auto) Baso % (Auto) Neut # (Auto) Lymph # (Auto) Hamilton # (Auto) Eos # (Auto) Baso # (Auto) Abs Immat Gran (auto) Imm/Tot Granulo (auto) Sodium 131 L Potassium 4.0 Chloride 96 L Carbon Dioxide 26.3 Anion Gap 12.7 BUN 15.0 Creatinine 0.87 Est GFR ( Amer) >60 Est GFR (Non-Af Amer) >60 BUN/Creatinine Ratio 17.2 Glucose 190 H Estimat Average Glucose Hemoglobin A1c Calcium 8.3 L POC Glucose 203 H 221 H 12/07/23 12/06/23 12/06/23 05:06 21:27 14:36 WBC 10.1 RBC 3.56 L Hgb 11.8 L Hct 33.9 L MCV 95.2 H MCH 33.1 MCHC 34.8 RDW 12.3 Plt Count 252 MPV 9.4 L Neut % (Auto) 72.3 Lymph % (Auto) 11.7 L Hamilton % (Auto) 13.2 H Eos % (Auto) 1.1 Baso % (Auto) 0.9 Neut # (Auto) 7.3 H Lymph # (Auto) 1.2 Hamilton # (Auto) 1.3 H Eos # (Auto) 0.1 Baso # (Auto) 0.1 Abs Immat Gran (auto) 0.08 H Imm/Tot Granulo (auto) 0.8 H Sodium 129 L Potassium 3.9 Chloride 94 L Carbon Dioxide 26.3 Anion Gap 12.6 BUN 16.0 Creatinine 0.73 Est GFR ( Amer) >60 Est GFR (Non-Af Amer) >60 BUN/Creatinine Ratio 21.9 Glucose 190 H Estimat Average Glucose 146 Hemoglobin A1c 6.7 H Calcium 8.6 POC Glucose 183 H 209 H Discharge Plan Discharge Disposition: Home Health Service Condition: Good Discharge Medications: New aspirin [Adult Low Dose Aspirin] 81 mg tablet,delayed release (DR/EC) 81 mg PO BID 30 Days Qty: 60 0RF cefadroxil 500 mg capsule 500 mg PO BID 7 Days Qty: 14 0RF cholecalciferol (vitamin D3) 125 mcg (5,000 unit) capsule 125 mcg PO DAILY 90 Days Qty: 90 0RF alendronate [Fosamax] 70 mg tablet 70 mg PO QWEEK 84 Days Qty: 12 0RF oxycodone-acetaminophen [Percocet] 5-325 mg tablet 1 tab PO Q6H PRN (Reason: pain) 7 Days Qty: 28 0RF ondansetron 4 mg tablet,disintegrating 4 mg PO Q8H PRN (Reason: nausea and vomiting) 5 Days Qty: 15 0RF sennosides [Senna Laxative] 8.6 mg tablet 8.6 mg PO DAILY PRN (Reason: constipation) 7 Days Qty: 7 0RF tizanidine 2 mg tablet 2 mg PO TID PRN (Reason: muscle spasticity) 7 Days Qty: 21 0RF Continued atorvastatin 80 mg tablet 80 mg PO DAILY lisinopril-hydrochlorothiazide 20-25 mg tablet 1 tab PO DAILY cholecalciferol (vitamin D3) 125 mcg (5,000 unit) capsule 125 mcg PO DAILY lisinopril 20 mg tablet 20 mg PO DAILY alendronate 70 mg tablet 70 mg PO QWEEK glipizide 5 mg tablet 5 mg PO DAILY Probiotic 3 billion cell capsule 3,000 mmu cells PO DAILY Rx Instructions: administer with a meal Activity Restrictions/Additional Instructions: - Will follow-up in [address] Mishra's office - RLE dressing to remain in place, dry until follow-up w/ Dr Mishra - Maintain strict nonweightbearing to right lower extremity with crutches walker or knee scooter for assistance. Forms: Portal Instructions
== END 2023-12-07 15:42 | disposition home or self-care (01) | DRG 493 ==
LOC: SURGOUT 12-07 08:58 → MS 12-07 13:45
PROVIDERS: Podiatrist Foot & Ankle Surgery; Admitting Provider Internal Medicine; Visit Provider Nurse Practitioner
PROC: 0SGF0JZ Fusion of Right Ankle Joint with Synthetic Substitute, Open Approach (ICD-10-PCS; principal; 2023-12-06 09:00)
DX: M19.171 Post-traumatic osteoarthritis, right ankle and foot (principal); E87.1 Hypo-osmolality and hyponatremia; M87.274 Osteonecrosis due to previous trauma, right foot; M87.271 Osteonecrosis due to previous trauma, right ankle; M21.171 Varus deformity, not elsewhere classified, right ankle; I10 Essential (primary) hypertension; E11.42 Type 2 diabetes mellitus with diabetic polyneuropathy; M21.961 Unspecified acquired deformity of right lower leg; M24.571 Contracture, right ankle; E78.00 Pure hypercholesterolemia, unspecified; Z87.891 Personal history of nicotine dependence; Z80.3 Family history of malignant neoplasm of breast; Z82.3 Family history of stroke; Z82.49 Family history of ischemic heart disease and other diseases of the circulatory system; Z79.84 Long term (current) use of oral hypoglycemic drugs; Z79.82 Long term (current) use of aspirin; M21.6X1 Other acquired deformities of right foot
CPT/HCPCS: 36415; 64445; 64447; 73610; 73630; 73700; 76000; 80048; 82948; 83036; 85025; 88305; 88311; 94761; 96365; 96366; 97161; 97530; C1713; C1776; J0690; J1100; J1650; J1885; J2250; J2405; J2704; J2795; J3010

== ENCOUNTER 2023-12-28 15:22 | Outpatient (OUT) | payer OTHER, SELFPAY ==
--- NOTE | 2023-12-28 | XR_ITS ---
The [address] [address] Patient Name: SAMEERA MCGREGOR MRN: [id number] date: 1960 Sex: M Assigned Patient Location: Current Patient Location: Accession/Order Number: [id number] Exam Date: 12/28/2023 15:30 Report Date: 12/28/2023 22:46 At the request of: ZOLTAN MCKEON Procedure: XR ankle RT min 3V EXAM: XR ankle RT min 3V 12/28/2023 COMPARISON STUDY: Right ankle 12/06/2023. FINDINGS: Frontal, oblique and lateral views for 3 views obtained. HISTORY: RIGHT ANKLE PAIN XR/XR ankle RT min 3V IMPRESSION: 1. Intramedullary justo and screw fixation of the tibia with hardware partially visualized. The talus has been resected replaced by a cage. Tibial justo extends through the mid calcaneus fixated by an intracortical screw. Hardware appears to be well seated. 2. Redemonstration of distal fibular osteotomy. 3. There is persistent soft tissue swelling and subcutaneous edematous changes about the distal calf and more so about the ankle and hindfoot. 4. Multifocal arthritic changes about the midfoot are again identified. There is ill-defined debris within the soft tissues about the ankle, more apparent medially as compared to laterally. Hypertrophic osseous changes associated with the distal tibia again identified. Tiny calcaneal enthesophytes are noted. 5. No acute fracture. Electronically authenticated by: JERED DORANTES Date: 12/28/2023 22:46
== END 2023-12-28 15:23 | disposition home or self-care (01) ==
LOC: EC 15:22
PROVIDERS: Visit Provider Physician Assistant
DX: M25.571 Pain in right ankle and joints of right foot (principal); Z98.890 Other specified postprocedural states
CPT/HCPCS: 73610

== ENCOUNTER 2024-01-18 15:19 | Outpatient (OUT) | payer OTHER, SELFPAY ==
--- NOTE | 2024-01-18 | XR_ITS ---
The [address] [address] Patient Name: SAMEERA MCGREGOR MRN: [id number] date: 1960 Sex: M Assigned Patient Location: Current Patient Location: Accession/Order Number: [id number] Exam Date: 01/18/2024 15:32 Report Date: 01/19/2024 07:50 At the request of: PAOLA HAHN Procedure: XR ankle RT min 3V PROCEDURE: XR ankle RT min 3V HISTORY: RIGHT ANKLE PAIN COMPARISON: XR ankle right 12/28/2023 FINDINGS: BONES:Mechanical fusion of the ankle joint and hindfoot via intramedullary justo and locking screws. Prosthetic spacer replacement of the talus. No appreciable hardware fracture or loosening. No bone fracture or dislocation. SOFT TISSUES:Moderate swelling surrounding the ankle. EFFUSION:None visible. OTHER: Negative. XR/XR ankle RT min 3V IMPRESSION: 1. Stable surgical changes without evidence of hardware failure or change in alignment. Electronically authenticated by: TAO DICKERSON Date: 01/19/2024 07:50
== END 2024-01-18 15:20 | disposition home or self-care (01) ==
LOC: EC 15:19
PROVIDERS: Visit Provider Podiatrist Foot & Ankle Surgery
DX: M19.171 Post-traumatic osteoarthritis, right ankle and foot (principal)
CPT/HCPCS: 73610

== ENCOUNTER 2024-02-08 14:59 | Outpatient (OUT) | payer OTHER, SELFPAY ==
--- NOTE | 2024-02-08 | XR_ITS ---
The [address] [address] Patient Name: SAMEERA MCGREGOR MRN: [id number] date: 1960 Sex: M Assigned Patient Location: Current Patient Location: Accession/Order Number: [id number] Exam Date: 02/08/2024 15:00 Report Date: 02/09/2024 08:05 At the request of: PAOLA HAHN Procedure: XR ankle RT min 3V PROCEDURE: XR ankle RT min 3V COMPARISON: 01/18/2024 HISTORY: RIGHT ANKLE PAIN FINDINGS: BONES:Stable ankle fusion with talus spacer. Intramedullary justo and proximally and distally. No acute fracture, dislocation or mechanical failure. Heterotopic bone likely from graft. Stable resection distal fibula SOFT TISSUES:Moderate diffuse soft tissue swelling EFFUSION:None visible. OTHER: Negative. XR/XR ankle RT min 3V IMPRESSION: Stable ankle fusion Electronically authenticated by: RICO LOPEZ Date: 02/09/2024 08:05
== END 2024-02-08 15:00 | disposition home or self-care (01) ==
LOC: EC 15:00
PROVIDERS: Visit Provider Podiatrist Foot & Ankle Surgery
DX: M25.571 Pain in right ankle and joints of right foot (principal)
CPT/HCPCS: 73610

== ENCOUNTER 2024-02-29 07:42 | Outpatient (OUT) | payer OTHER, SELFPAY ==
--- NOTE | 2024-02-29 07:53 | CT_ITS ---
The [address] [address] Patient Name: SAMEERA MCGREGOR MRN: [id number] date: 1960 Sex: M Assigned Patient Location: CT Current Patient Location: Accession/Order Number: [id number] Exam Date: 02/29/2024 08:00 Report Date: 03/01/2024 06:18 At the request of: ZOLTAN MCKEON Procedure: CT ankle RT wo con EXAMINATION: CT ankle RT wo con HISTORY: Arthritis Right Ankle COMPARISON: CT ankle right 12/06/2023 TECHNIQUE: Multi-planar CT images were created without and/or with IV contrast according to examination type. Dose reduction techniques were achieved by using automated exposure control and/or adjustment of mA and/or kV according to patient size and/or use of iterative reconstruction technique. FINDINGS: BONES: Ankle and hindfoot fusion via intramedullary justo and locking screws. Ascetic spacer replacement of the talus. No appreciable hardware fracture or loosening. Resection of lateral malleolus. SOFT TISSUES: Mild/moderate subcutaneous edema. Clearing of previously seen postsurgical free air. EFFUSION: None visible. OTHER: Negative. CT/CT ankle RT wo con IMPRESSION: 1. Stable surgical changes without evidence of hardware failure or change in alignment. Electronically authenticated by: TAO DICKERSON Date: 03/01/2024 06:18
== END 2024-02-29 07:43 | disposition home or self-care (01) ==
LOC: CT 07:42
PROVIDERS: Visit Provider Physician Assistant
DX: M19.071 Primary osteoarthritis, right ankle and foot (principal); Z98.890 Other specified postprocedural states
CPT/HCPCS: 73700